=== PATIENT | female | born 1970 | race African-American/Black ===

== ENCOUNTER → 2019-01-03 | Outpatient (CLI) | payer BC ==
[~2019-01-03] MED LIST: GADOBENATE DIMEGLUMINE 529 MG/ML 10ML IV ONE
[2019-01-03 12:47] LABS: BASOPHILS % 1.4 % (0.0-2.0); EOSINOPHILS % 4.4 % (0.0-5.0); HEMATOCRIT. 30.8 % (36.0-48.0); HEMOGLOBIN. 9.8 g/dL (12.0-16.0); LYMPHOCYTES % 31.5 % (20.0-50.0); MEAN CORPUSCULAR HEMOGLOBIN 24.9 pg (28.0-32.0); MEAN CORPUSCULAR VOLUME 78.2 fL (81.0-99.0); MEAN PLATELET VOLUME 7.9 fl (7.4-10.4); MONOCYTES % 8.9 % (2.0-8.0); NEUTROPHILS % 53.8 % (40.0-76.0); PLATELET 434 x1000/uL (130-400); RED BLOOD CELL COUNT 3.93 mill/uL (4.2-5.4); RED CELL DISTRIBUTION WIDTH 15.6 % (11.6-14.6)
[2019-01-03 13:12] LABS: CHLORIDE 105 mEq/L (98-107)
[2019-01-03 13:20] LABS: HDL CHOLESTEROL 56 mg/dL (40-59); T4 FREE 0.81 ng/dL (0.76-1.46)
[2019-01-03 13:21] LABS: BETA HYDROXYBUTYRATE 0.1 mMol/L (0.0-0.3); LDL CHOLESTEROL 110 mg/dL (5-100)
[2019-01-06 13:09] LABS: INSULIN-LIKE GROWTH FACTOR 1 127 ng/mL (57-195)
== END | disposition home or self-care (01) ==
LOC: MRI 11:11
PROVIDERS: ATTEND Internal Medicine Endocrinology, Diabetes & Metabolism
DX: I67.82 Cerebral ischemia (principal); D35.2 Benign neoplasm of pituitary gland; R90.82 White matter disease, unspecified; I10 Essential (primary) hypertension; R73.9 Hyperglycemia, unspecified
CPT/HCPCS: 36415; 70553; 80053; 80061; 82010; 82024; 82306; 82533; 84146; 84305; 84439; 84443; 85025; A9577

== ENCOUNTER → 2019-12-04 | Outpatient (CLI) | payer BC ==
[2019-12-04 11:08] LABS: BASOPHILS % 1.1 % (0.0-2.0); EOSINOPHILS % 2.7 % (0.0-5.0); HEMATOCRIT. 27.5 % (36.0-48.0); HEMOGLOBIN. 8.7 g/dL (12.0-16.0); LYMPHOCYTES % 36.5 % (20.0-50.0); MEAN CORPUSCULAR HEMOGLOBIN 21.5 pg (28.0-32.0); MEAN PLATELET VOLUME 7.6 fl (7.4-10.4); MONOCYTES % 6.7 % (2.0-8.0); PLATELET 490 x1000/uL (130-400); RED BLOOD CELL COUNT 4.05 mill/uL (4.2-5.4); RED CELL DISTRIBUTION WIDTH 18.2 % (11.6-14.6)
[2019-12-04 12:54] LABS: CHLORIDE 106 mEq/L (98-107)
[2019-12-04 13:04] LABS: LDL CHOLESTEROL 116 mg/dL (5-100)
[2019-12-04 13:05] LABS: T4 FREE 0.91 ng/dL (0.76-1.46)
[2019-12-04 13:06] LABS: HDL CHOLESTEROL 60 mg/dL (40-59)
[2019-12-04 14:11] LABS: PLATELET ESTIMATE SLIGHTLY INCREASED
== END | disposition home or self-care (01) ==
LOC: LAB 10:16
PROVIDERS: ATTEND Physician Assistant
DX: I10 Essential (primary) hypertension (principal); E78.5 Hyperlipidemia, unspecified; E55.9 Vitamin D deficiency, unspecified; R73.03 Prediabetes; D35.2 Benign neoplasm of pituitary gland
CPT/HCPCS: 36415; 80053; 80061; 82306; 83036; 84439; 84481; 85025